=== PATIENT | male | born 1965 | race African-American/Black ===

== ENCOUNTER 2025-04-07 13:52 | Emergency (ER) | payer OTHER ==
[~2025-04-07] VITALS: Ht 186.7 cm; Wt 109.0 kg
[2025-04-07 13:57] VITALS: O2SAT 98
[2025-04-07 15:04] LABS: HEMATOCRIT. 40.8 % (42.0-52.0); HEMOGLOBIN. 12.9 g/dL (14.0-18.0); MEAN PLATELET VOLUME 9.5 fl (7.4-10.4); PLATELET 161 x1000/uL (130-400); RED BLOOD CELL COUNT 4.62 mill/uL (4.7-6.1); RED CELL DISTRIBUTION WIDTH 13.9 % (11.6-14.6)
[2025-04-07] MEDS: ACETAMINOPHEN 325MG TABLET PO ONE (15:15)
[2025-04-07 15:16] LABS: CREATININE 1.3 mg/dL (0.6-1.3); UREA NITROGEN BLOOD 12 mg/dL (9-23)
[2025-04-07 15:17] LABS: TROPONIN I HIGH SENSITIVITY 6 ng/L (3.0-53)
[2025-04-07 15:18] LABS: ASPARTATE AMINOTRANSFERASE 23 IU/L (<34); BILIRUBIN DIRECT 0.3 mg/dL (<=3.0); BILIRUBIN TOTAL 0.9 mg/dL (0.1-1.0); PROTEIN TOTAL 7.5 g/dL (6.0-8.3)
[2025-04-07 16:30] VITALS: BP 144/102; PULSE 83; RESP 15; TEMP 37.1; O2SAT 98
[2025-04-07] MEDS ORDERED: CYCL10TA21 MT (16:38)
[2025-04-07] MEDS ORDERED: LIDO-53 TP (16:38)
[2025-04-07 16:54] LABS: TROPONIN I HIGH SENSITIVITY 8 ng/L (3.0-53)
[2025-04-07 16:59] LABS: BAND% 1.0 % (1.0-6.0); LYMPHOCYTES % MANUAL 9.0 % (20.0-50.0); MONOCYTES % MANUAL 7.0 % (2.0-8.0); NEUTROPHILS % MANUAL 83.0 % (45.0-75.0); PLATELET ESTIMATE NORMAL
[2025-04-07] MEDS ORDERED: IOHEXOL-300 100 ML BOTTLE ONE (23:40)
== END 2025-04-07 17:06 | disposition home or self-care (01) ==
LOC: ER 13:52 → CANBEDREQ 16:53 → ER 17:06
DX: R10.84 Generalized abdominal pain (principal); Z79.899 Other long term (current) drug therapy; W11.XXXA Fall on and from ladder, initial encounter; Y93.89 Activity, other specified; Y92.89 Other specified places as the place of occurrence of the external cause; Y99.8 Other external cause status
CPT/HCPCS: 99285; 74177; 71045; 80076; 80048; 83690; 83735; 85025; 84484; 36415; Q9967